=== PATIENT | male | born 1955 | race Caucasian/White ===

== ENCOUNTER → 2023-10-31 | Outpatient (CLI) | payer MEDICARE | END | disposition home or self-care (01) | LOC: LABWHC1 09:51 | DX: Z00.00 Encounter for general adult medical examination without abnormal findings (principal); J30.2 Other seasonal allergic rhinitis; F10.90 Alcohol use, unspecified, uncomplicated; G62.9 Polyneuropathy, unspecified; Z12.5 Encounter for screening for malignant neoplasm of prostate | CPT/HCPCS: 36415; 80053; 80061; 82607; 82746; 84153; 84165; 84443; 85025 ==

== ENCOUNTER → 2023-11-19 | Outpatient (CLI) | payer MEDICARE ==
--- NOTE | 2023-11-21 16:18 | MR ---
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 TECHNIQUE: Multi planar, multi sequence imaging was performed through the brain including: T1, T2, In version recovery, susceptibility weighted imaging and gradient echo imaging and Diffusion weighted im aging. The patient was then given intravenous contrast and multi planar, T1 fat-saturation images wer e obtained. IV Contrast: 9.5 cc Gadavist FINDINGS: There is lesion in the left cerebellopontine angle which is described in prior report. No p rior imaging is available. This is somewhat heterogenous on all sequences multiple vessels course jono und near this region. No definitive abnormal enhancement is visualized. There is susceptibility lehman ing artifact in this region. No evidence for restricted diffusion. The ventricular systems without normal limits. Few scattered wh ite matter changes which are punctate. The bone marrow signal is within normal limits. Paranasal sinuses and mastoid air cells: No significant paranasal sinus disease. Visualized orbits: Orbital contents are intact. IMPRESSION: 1. 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 Susceptibility artifact com patible with hemosiderin deposition. No abnormal enhancement. Correlation with outside imaging is rec ommended for stability. No evidence of intracranial mass, acute/subacute infarct, or abnormal enhance ment. 2. Nonspecific white matter changes, likely related to small vessel ischemic disease.
== END | disposition home or self-care (01) ==
LOC: RADMRIMAIN 13:58
PROVIDERS: ATTEND Internal Medicine
DX: G83.0 Diplegia of upper limbs
CPT/HCPCS: 70553